=== PATIENT | female | born 1975 | race Hispanic/Latino ===

== ENCOUNTER 2018-07-25 03:10 | Inpatient (IN) | payer SELFPAY ==
[2018-07-25 05:55] VITALS: BMI 31.1
[2018-07-25] MEDS ORDERED: Ondansetron HCl/PF 4 MG/2 ML Vial IVP PRN ×2 (06:05→13:44)
[2018-07-25] MEDS ORDERED: Morphine 4 MG/ML VIAL SLOW IVP PRN (06:05)
[2018-07-25] MEDS ORDERED: Ondansetron ODT 4 MG TAB SL PRN (06:05)
[2018-07-25] MEDS ORDERED: Piperacillin/Tazobactam 3.375 GM in Sodium Chloride 0.9% 100 ML IVPB SCH ×2 (06:15→12:00)
[2018-07-25] MEDS ORDERED: Lactated Ringer's 1,000 ML IV SCH ×2 (06:15→07:30)
--- NOTE | 2018-07-25 07:19 | ULT ---
RIGHT UPPER QUADRANT ULTRASOUND: Date: 07/25/18 INDICATION: Right upper quadrant pain. FINDINGS: There is fatty infiltration of the liver. There is a distended gallbladder with multiple stones and sludge. There is gallbladder wall thickenin g and pericholecystic fluid. There is a positive sonographic Trotter's sign reported. Common bile duct measured 3.3 mm. Visualized aspects of the pancreas are within normal limits. Right kidney measures 10.0 x 4.8 x 4.1 c m. No focal renal lesion or hydronephrosis is evident. IMPRESSION: Findings suspicious for acute calculus cholecystitis. POS: [facility]
[2018-07-25] MEDS ORDERED: Acetaminophen 1,000 MG in Premix Bag 1 BAG IVPB PRN (07:27)
[2018-07-25] MEDS ORDERED: Ketorolac Tromethamine 30 MG/ML VIAL IVP PRN (07:27)
[2018-07-25] MEDS ORDERED: Ketorolac Tromethamine 30 MG/ML VIAL IVP SCH (07:30)
[2018-07-25] MEDS ORDERED: Scopolamine 1.5 mg/72 hour Patch TD SCH (07:30)
[2018-07-25] MEDS ORDERED: Acetaminophen 1,000 MG in Premix Bag 1 BAG IVPB SCH (07:30)
--- NOTE | 2018-07-25 07:42 | HP ---
HISTORY OF PRESENT ILLNESS: A 43-year-old female presents with a several day history of right upper quadrant, back radiation, nausea. She presented to the outside emergency room and CAT scan revealed changes consistent with cholecystitis. Ultrasound obtained reveals normal bile duct caliber and chol elithiasis. Liver function tests are normal. The patient is admitted and has had Zosyn. ALLERGIES: None. TOBACCO: None. ALCOHOL: None. MEDICATIONS: None. PAST MEDICAL AND SURGICAL HISTORY: Noncontributory. SOCIAL HISTORY: 3, para 3 with 21, 15, and 9-year-old children. 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 FAMILY HISTORY: Noncontributory. REVIEW OF SYSTEMS: Noncontributory. PHYSICAL EXAMINATION: VITAL SIGNS: A 5 feet 5 inches, 187 pounds, 31 BMI, 98.9 degrees, 18, 126/83. HEENT: Unremarkable. Sclerae nonicteric. LUNGS: Clear to auscultation. CARDIAC: Regular rate and rhythm without murmur or gallop. ABDOMEN: Tenderness in right upper quadrant with positive Trotter sign. EXTREMITIES: Unremarkable. SKIN: Nonjaundiced. NEUROLOGIC: Intact. GCS 15. LYMPHATICS: No lymphadenopathy in neck, groins, axilla. Palpable pedal and radial pulses. LABORATORY DATA: [facility] laboratories showed sodium 138, potassium 4.4, BUN 9 .7, creatinine 0.7, GFR 117, bilirubin 1.2, alkaline phosphatase 89, AST and ALT are 18 and 15 respec tfully. Lipase is normal at 34. White count 12, hemoglobin 14, platelet count 256,000. Urinalysis unremarkable. ASSESSMENT AND PLAN: Acute cholecystitis and cholelithiasis. Recommend laparoscopic video cholecyst ectomy. Risk of infection, bleeding, visceral and biliary injury, bleeding, open operation discussed using the inter com installer service. Questions answered.
--- NOTE | 2018-07-25 09:24 | RAD ---
PORTABLE CHEST: Date: 07/25/18 PROVIDED CLINICAL HISTORY: Chest pain. FINDINGS: No comparisons. The cardiac and mediastinal silhouette are within normal limits for portable technique. The lungs are hypoinflated with bibasilar subsegmental atelectatic change. No focal consolidation, pleural fluid, or pneumothorax apparent. IMPRESSION: Hypoinflated exam. POS: [facility]
[2018-07-25] MEDS ORDERED: Fentanyl 100 MCG/2 ML VIAL ONE (11:33)
[2018-07-25] MEDS ORDERED: Bupivacaine HCl 0.5%/Epinephrine 1:200,000/PF 30 ml Vial ONE (11:37)
[2018-07-25] MEDS ORDERED: Ibuprofen 600 MG TAB PO PRN (12:57)
[2018-07-25] MEDS ORDERED: Acetaminophen 500 MG TAB PO PRN (12:57)
[2018-07-25] MEDS ORDERED: traMADol HCl 50 MG TAB PO PRN ×2 (12:57)
[2018-07-25] MEDS ORDERED: Promethazine HCl 25 MG/ML VIAL SLOW IVP PRN (13:44)
[2018-07-25] MEDS ORDERED: Promethazine HCl 25 MG/ML VIAL IM PRN (13:44)
[2018-07-25] MEDS ORDERED: Promethazine HCl 25 MG/ML VIAL ONE (14:11)
--- NOTE | 2018-07-25 15:47 | OP ---
DATE OF PROCEDURE: 07/25/2018 PREOPERATIVE DIAGNOSES: Acute chronic cholecystitis and cholelithiasis. POSTOPERATIVE DIAGNOSES: Acute chronic cholecystitis and cholelithiasis. PROCEDURE: Laparoscopic video cholecystectomy. SURGEON: Manny Faustin M.D. ANESTHESIA: General. Local 0.5% Marcaine with epinephrine, 30 mL, mixed with 2% Xylocaine, 10 mL DESCRIPTION OF PROCEDURE: The patient was taken to the operating room where under general anesthesia , abdomen was prepared with ChloraPrep and draped in routine fashion. Local anesthetic infiltrated i nto the skin and subcutaneous tissue about the operative site. Infraumbilical incision made and pneu moperitoneum to 15 mmHg obtained with the Veress needle placing with a 5 port and video laparoscope i nserted. Remainder ports placed in left side for visualization. Right subxiphoid incision made and 11 port placed. Right subcostal incision made mid clavicular anterior axillary lines and 5 ports michele monisha. Gallbladder was noted be acutely inflamed. I could not grasp. The wall was very thickened. T gallbladder opening was made in the fundus and contents aspirated with the suction and fundus gras ped and reflected cephalad. Liver appeared to be normal. Inflammatory adhesions of the omentum take n down cystic artery and duct with critical view obtained. Cystic artery and duct double clipp ed proximally. Gallbladder dissected free from its inflammatory edematous adhesions attachments to t he gallbladder bed. Gallbladder and contents removed and submitted to pathology along with multiple stones which were fragmented to enable removal. Irrigant and pneumoperitoneum evacuated was us ed for hemostasis in the gallbladder bed. Good hemostasis noted. Irrigant and pneumoperitoneum evac uated. All instruments were removed and all skin incisions approximated with interrupted subdermal 4 -0 Monocryl and DermaGlue applied.
[2018-07-25 19:34] VITALS: BP 113/71; TEMP 98.2
--- NOTE | 2018-07-25 21:31 | DIS ---
DATE OF ADMISSION: 07/25/2018 DATE OF DISCHARGE: 07/25/2018 DISCHARGE DIAGNOSES: Acute cholecystitis, cholelithiasis, obesity. PROCEDURE: Laparoscopic cholecystectomy. HOSPITAL COURSE: A 43-year-old female with acute cholecystitis history for several days, presented t [facility] Emergency Room. CAT scan demonstrated cholecystitis. She presented to our emergency rodrigo m at [facility]. Ultrasound confirmed cholecystitis and cholelithiasis. Liver function don ts were normal. She received intravenous fluids and antibiotics, underwent laparoscopic video cholec ystectomy. She was discharged home with Tylenol, Motrin [id number] for pain, Cipro 500 b.i.d. for 5 days; and follow up in my office in 2-3 weeks. Diet and activity as tolerated.
== END 2018-07-25 18:44 | disposition home or self-care (01) | DRG 419 ==
LOC: ERS 03:10 → T4-B 05:48
PROVIDERS: ADMIT Specialist; ATTEND Specialist
PROC: 0FT44ZZ Resection of Gallbladder, Percutaneous Endoscopic Approach (ICD-10-PCS; principal; 2018-07-25)
DX: K80.12 Calculus of gallbladder with acute and chronic cholecystitis without obstruction (principal)
CPT/HCPCS: 36415; 71045; 76705; 86850; 86900; 86901; 88304; A4216; J0131; J0670; J1885; J1956; J2405; J2543; J2550; J3010; J7050